=== PATIENT | female | born 1975 | race Caucasian/White ===

== ENCOUNTER 2019-10-25 13:35 | Emergency (ER) | payer OTHER, SELFPAY ==
[2019-10-25 14:07] LABS: Bilirubin Negative (Negative); Blood, Urine Moderate (Negative); Glucose, Urine (Dipstick) Negative (Negative); Leukocyte Small (Negative); Nitrite Positive (Negative); Protein, Urine (Dipstick) 100 mg/dL (Neg-Trace); Urobilinogen 0.2 mg/dL (Less than 2)
[2019-10-25 14:10] LABS: Clarity Hazy (Clear)
[2019-10-25 14:16] LABS: Bacteria/HPF 3+ HPF (None Seen); RBC/HPF 0-3 HPF (0-3); Squamous Epithelial 0-3 HPF (0-3)
[2019-10-25] MEDS ORDERED: Ketorolac Tromethamine 60 MG/2 ML VIAL ONE (14:25)
== END 2019-10-25 14:30 | disposition home or self-care (01) ==
LOC: NAV ERS 13:35
DX: N39.0 Urinary tract infection, site not specified (principal); F41.9 Anxiety disorder, unspecified; F17.210 Nicotine dependence, cigarettes, uncomplicated
CPT/HCPCS: 81003; 81015; 87077; 87086; 87186; 96372; 99284; J1885